=== PATIENT | female | born 1960 | race Caucasian/White ===

== ENCOUNTER 2024-06-18 04:08 | Emergency (ER) | payer MEDICARE ==
[~2024-06-18] VITALS: Ht 167.6 cm; Wt 68.0 kg
[2024-06-18 04:10] VITALS: BP 139/96; PULSE 70; RESP 16; TEMP 96.8
[2024-06-18] MEDS: ondanSETRON ODT 4MG TAB ONE (04:30)
[2024-06-18 04:46] LABS: SARS-CoV-2, RNA, NAAT NEGATIVE SARS CoV-2 (NEGATIVE)
[2024-06-18 04:49] LABS: INFLUENZA TYPE A Negative For Type A (NEGATIVE); INFLUENZA TYPE B Negative For Type B (NEGATIVE)
--- NOTE | 2024-06-18 05:41 | ERN ---
ED Note History of Present Illness Stated Complaint: ABD PAIN, NAUSEA Chief Complaint: Abdominal Pain Time Seen by MD: 04:34 Dictation: This is a 64-year-old female who presented to the emergency room with complaints of generalized abdominal pain that started on 06/17/2024 at about 7:00 p.m.. It got worse overnight and hence she came in for evaluation she also reported nausea along with the abdominal discomfort. Apparently she ate late about 7:30 p.m. some chips with cheese after which she started developing severe abdominal pain bloating and nausea Temperature 96.8 pulse 70 respirations 16 blood pressure 139/96 pulse oximetry 98% on room air Allergies: Coded Allergies: Sulfa (Sulfonamide Antibiotics) (Unverified Allergy, Unknown, 06/18/24) Past Medical History Past Medical History: No Pertinent History Surgical History: Tonsillectomy, Other Surgical History Other: RT ANKLE, THYROID Family History: Negative Social History: Negative History: Not Applicable RN Note Reviewed/Agreed w/PFSH: Yes Review of System Dictation Constitutional: Negative for fever,chills, and weight loss Eyes: Negative for injury, pain,redness, and discharge ENT: Negative for injury,pain or swelling Cardiovascular: Negative for chest pain, palpitations, and edema Respiratory: Negative for shortness of breath, cough, and wheezing, Abdomen/GI: Positive for abdominal pain, nausea, denied vomiting, diarrhea, and constipation Back: Negative for injury and pain : Negative for injury, bleeding and discharge MS/Extremity: Negative for injury and deformity Skin: Negative for rash, and discoloration Neuro: Negative for headache, weakness, numbness, tingling, and seizure Psych: Negative for suicide ideation, homicidal ideation, and hallucinations Initial Vital Sign VS Vital Signs Date Time Temp Pulse Resp B/P (MAP) Pulse Ox O2 Delivery O2 Flow Rate FiO2 06/18/24 04:10 96.8 70 16 139/96 98 Room Air Physical Exam Dictation General: awake, alert, NAD Head/Face: Normocephalic, atraumatic Eyes: PERRL, EOMI, vision at baseline ENT: oral cavity clear, TMs clear, no signs of infection Neck: Trachea midline, supple, no nuchal rigidity Cardiovascular: RRR, normal S1/S2, No MRGs, no JVD Respiratory: CTAB, no respiratory distress, No rales or wheezes Abdomen: Soft, non-tender, non-distended, normal bowel sounds, no guarding or rebound. Skin: Warm, dry, normal turgor, no rash MS/Extremity: Pulses equal, no cyanosis, neurovascular intact, FROM Neuro: COAx4, GCS 15, strength 5/5, CN 2-12 intact, normal cerebellar exam, normal gait, Psych: Normal behavior, mood, and affect normal Extremities-trace edema without any palpable cords, Homans sign is negative Results (Laboratory/Radiology) Laboratory/Radiology Laboratory Tests Test 06/18/24 04:14 06/18/24 04:53 Influenza Type A Antigen Negative For Type A Influenza Type B Antigen Negative For Type B SARS-CoV-2, RNA, NAAT NEGATIVE SARS CoV-2 Urine Color YELLOW (YELLOW) Urine Appearance CLEAR (CLEAR) Urine pH 7.5 (5.0-8.0) Urine Specific Hardy 1.025 (1.001-1.031) Urine Protein 30 mg/dL (NEGATIVE) H Urine Glucose (UA) NEGATIVE mg/dL (NEGATIVE) Urine Ketones 10 mg/dL (NEGATIVE) H Urine Occult Blood NEGATIVE (NEGATIVE) Urine Nitrate NEGATIVE (NEGATIVE) Urine Bilirubin NEGATIVE mg/dL (NEGATIVE) Urine Urobilinogen 2.0 mg/dL (0.2-1.0) H Urine Leukocyte Esterase NEGATIVE Sara/uL Labs Reviewed?: Yes ED Course ED Course Orders Procedure Category Date Status Time Ondansetron Odt 4mg PHA 06/18/24 Complete Tab (Zofran 4mg Odt) 04:11 Vital Signs Per CPOE 06/18/24 Transmitted Routine 04:13 Saline Lock Iv CPOE 06/18/24 Transmitted 04:13 Cbc With Differential LAB 06/18/24 Logged 04:13 Lipase LAB 06/18/24 Logged 04:13 Urinalysis Profile LAB 06/18/24 In Process 04:13 Basic Metabolic Panel LAB 06/18/24 Logged 04:13 Covid Rna Naat LAB 06/18/24 Complete 04:13 Influenza Type A & B, LAB 06/18/24 Complete Rapid 04:13 12 Lead Ekg Tracing- EKG 06/18/24 Logged Technical 04:13 Troponin I High LAB 06/18/24 Logged Sensitivity 04:13 Current Medications Medications (Trade) Dose Ordered Sig/Kelsey Route PRN Reason Start Time Stop Time Status Last Admin Dose Admin Ondansetron HCl (zoFRAN 4MG ODT) 4 mg STK-MED ONCE .ROUTE 06/18/24 04:11 06/18/24 04:12 DC 06/18/24 04:30 Vital Signs Date Time Temp Pulse Resp B/P (MAP) Pulse Ox O2 Delivery O2 Flow Rate FiO2 06/18/24 04:10 96.8 70 16 139/96 98 Room Air We will perform diagnostic labs, advanced imaging and administer medications according to the patient's complaint. Once the results are available, will review and personally interpreted the labs to rule out any acute life- threatening emergency the trach require immediate intervention and treatment. I will then re-evaluate the patient after treatment and diagnostic exams have return to determine whether the patient requires any further testing, can safely be discharged home or need further admission to hospital for additional treatment and evaluation. 5:00 a.m. labs are still pending 5:40 a.m. flu and COVID tests are negative CBC and rest of the labs are still pending 6:00 a.m. she felt significantly improved with complete resolution of symptoms and I updated her on my thoughts of possibly biliary colic versus dyspepsia. She verbalized full understanding. She did not want to wait for the labs. Medical Decision Making MDM MDM: Differential diagnosis: Dyspepsia, biliary colic, delayed gastric emptying, gastroesophageal reflux Rationale: Tests considered and ordered secondary to shared decision making include: Previous outside records reviewed: Old ER visits. Risk of complication and/or morbidity or mortality of patient management: None Medications-Per medication reconciliation Need for hospitalization: Patient does not meet criteria for hospitalization. Need for emergency major/minor surgery: No There are no social concerns with this patient. Prescription drug management Prescriptions will include symptomatic care Patient's prior external medical records from other ER visits were reviewed by me as indicated. Prior testing and results from previous visits were reviewed. Prior tests were taken into account with medical decision making and resource utilization, independent historian/historians were used to obtain complete medical history. I independently interpreted the test that were performed, results were reviewed by me and considered findings on radiology if ordered. Medical management and examination interpretation discussions were had by me with other qualified healthcare professionals as indicated for the patient's c are. DX & DISP Disposition: Discharge Departure Impression: Primary Impression: Biliary colic symptom Additional Impression: Dyspepsia Condition: Stable Scripts Enzymes,Digestive (Enzymatic Digestant) 1 Each Tablet 1 EACH PO DAILY, #90 TAB Prov: GAURAV ALFREDO MD 06/18/24 Ondansetron (Ondansetron Odt) 4 Mg Tab.rapdis 4 MG PO Q6HPRN PRN for nausea, #16 TAB 0 Refills Prov: GAURAV ALFREDO MD 06/18/24 Referrals: SELF,REFERRAL (PCP) GAURAV ALFREDO MD Jun 18, 2024 05:41
[2024-06-18 05:49] LABS: APPEARANCE,URINE CLEAR (CLEAR); BILIRUBIN,URINE NEGATIVE (NEGATIVE); COLOR,URINE YELLOW (YELLOW); GLUCOSE, URINE (UA) NEGATIVE (NEGATIVE); KETONES,URINE 10 mg/dL (NEGATIVE); LEUKOCYTE ESTERASE ,URINE NEGATIVE Leu/uL (NEGATIVE); NITRATE,URINE NEGATIVE (NEGATIVE); OCCULT BLOOD,URINE NEGATIVE (NEGATIVE); PH,URINE 7.5 (5.0-8.0); PROTEIN,URINE 30 mg/dL (NEGATIVE)
[2024-06-18 05:55] LABS: ADD UA MICROSCOPIC YES
[2024-06-18 05:57] LABS: BACTERIA,URINE FEW /HPF (None Seen); MUCUS,URINE FEW LPF (None Seen); SQUAMOUS EPITHELIAL CELL,UR RARE /HPF (0-2)
[2024-06-18] MEDS ORDERED: ENZY1TAB4 PO (06:11)
[2024-06-18] MEDS ORDERED: ONDA-243 PO (06:11)
--- NOTE | 2024-06-18 07:49 | EKG ---
[facility] Test Date: 2024-06-18 Test Time: 04:23:02 Pat Name: DILLON ABREU Department: ED Room: Gender: Female [employer]: [id number] : 1960 Requested By: GAURAV ALFREDO Order Number: [id number] Reading MD: Measurements Intervals [place] Rate: 60 P: 50 RI: 134 QRS: -7 QRSD: 84 T: 5 QT: 423 QTc: 424 Interpretive Statements Sinus rhythm Low voltage, precordial leads Posterior infarct, old No previous ECG available for comparison Please click the below link to view image of tracing.
== END 2024-06-18 05:55 | disposition home or self-care (01) ==
LOC: EDH 04:08
DX: K80.50 Calculus of bile duct without cholangitis or cholecystitis without obstruction (principal); R10.13 Epigastric pain; Z20.822 Contact with and (suspected) exposure to COVID-19; Z88.2 Allergy status to sulfonamides; Z90.89 Acquired absence of other organs
CPT/HCPCS: 81001; 87635; 87804; 93005; 99284

== ENCOUNTER → 2024-08-20 | Outpatient (CLI) | payer MEDICARE ==
[~2024-08-20] MED LIST: ENZY1TAB4 PO; ONDA-243 PO
--- NOTE | 2024-08-20 10:53 | HMCIMG ---
US ABDOMINAL COMPLETE HISTORY: Abdominal pain COMPARISON: None TECHNIQUE: Multiple transverse and longitudinal ultrasound images of the abdomen were obtained. FINDINGS: Abdominal aorta and inferior vena cava are unremarkable. The visualized portion of the pancreas is within normal limits. Liver measures 15 cm. No gallstone is seen. Common duct measures 5 mm. No evidence of gallbladder wall thickening is seen. Both kidneys are seen. Right kidney measures 10 x 4.3 x 4.3 cm. Left kidney measures 11.7 x 5.2 x 4.7 cm. There are multiple left parapelvic renal cysts with the largest measuring 13 mm. No hydronephrosis is seen of the both kidneys. The spleen measures 9.7 cm. The spleen is grossly unremarkable. IMPRESSION: 1. No gallstone or ductal dilatation is seen. 2. No hydronephrosis is seen.
== END | disposition home or self-care (01) ==
LOC: RAH 10:04
PROVIDERS: ATTEND Physician Assistant Medical
DX: N28.1 Cyst of kidney, acquired (principal); R10.9 Unspecified abdominal pain
CPT/HCPCS: 76700